=== PATIENT | male | born 1990 | race Caucasian/White ===

== ENCOUNTER 2023-02-09 06:43 | Day surgery (SDC) | payer BC ==
[~2023-02-09 06:43] MED LIST: Acetaminophen 500 MG Tab PO ONE; Bupivacaine 0.5%/EPINEPHrine 1:200,000 50 ML MDV ONE; Lactated Ringers 1,000 ML IV SCH
[2023-02-09] MEDS ORDERED: Dexamethasone 4 MG/ML SDV ONE (06:59)
[2023-02-09] MEDS ORDERED: Rocuronium 50 MG/5 ML Vial ONE (06:59)
[2023-02-09] MEDS ORDERED: Glycopyrrolate 0.2 MG/ML 5 ML MDV ONE (06:59)
[2023-02-09] MEDS ORDERED: Succinylcholine 200 MG/10 ML MDV ONE (06:59)
[2023-02-09] MEDS ORDERED: Neostigmine Methylsulfate 1 MG/ML 5 ML Syringe ONE (06:59)
[2023-02-09] MEDS ORDERED: Ondansetron 4 MG/2 ML SDV ONE (06:59)
[2023-02-09] MEDS ORDERED: Propofol 200 MG/20 ML SDV ONE (06:59)
[2023-02-09] MEDS ORDERED: fentaNYL 250 MCG/5 ML SDV ONE ×2 (07:00→07:59)
[2023-02-09] MEDS ORDERED: ceFAZolin 2 GM in Sodium Chloride 0.9% 50 ML IV ONE (07:00)
[2023-02-09] MEDS ORDERED: Lactated Ringers 1,000 ML ONE (08:32)
[2023-02-09] MEDS ORDERED: Acetaminophen/HYDROcodone 325-5 MG Tab PO ONE (11:00)
== END 2023-02-09 12:40 | disposition home or self-care (01) ==
LOC: JP.SDS 06:43
PROVIDERS: ATTEND Student in an Organized Health Care Education/Training Program
DX: K40.90 Unilateral inguinal hernia, without obstruction or gangrene, not specified as recurrent (principal); F17.200 Nicotine dependence, unspecified, uncomplicated; Z98.890 Other specified postprocedural states; Z79.899 Other long term (current) drug therapy
CPT/HCPCS: A9270-GY; C1781; J0330; J1100; J2405; J2704; J2710; J3010; J3490; J7120